=== PATIENT | female | born 1970 | race Caucasian/White ===

== ENCOUNTER 2017-06-01 17:51 | Emergency (ER) | payer BC ==
--- NOTE | 2017-06-01 19:25 | ED ---
Respiratory - HPI Summary HPI Summary: 46 year old female presents with complains of cough. On a side note she is was recently placed on Amoxil . - History of Current Complaint Chief Complaint: UCRespiratory Stated Complaint: COUGH,DIZZINESS Time Seen by Provider: 06/01/17 19:25 Hx Obtained From: Patient Onset/Duration: Sudden Onset Initial Severity: Moderate Current Severity: Moderate Character: Wheezing, Cough (Productive) Sputum Amount: Moderate - Allergy/Home Medications Allergies/Adverse Reactions: Allergies Allergy/AdvReac Type Severity Reaction Status Date / Time Azithromycin [From Zithromax] AdvReac Intermediate GI Upset Verified 06/01/17 19 :23 Home Medications: Home Medications Amoxicillin PO (*) [Amoxicillin 500 MG CAP*] 1 tab Q8H 06/01/17 [History Confirmed 06/01/17] PMH/Surg Hx/FS Hx/Imm Hx Previously Healthy: Yes Endocrine/Hematology History: Denies: Hx Diabetes Cardiovascular History: Denies: Hx Hypertension, Hx Pacemaker/ICD Sensory History: Denies: Hx Hearing Aid Psychiatric History: Denies: Hx Panic Disorder - Surgical History Surgery Procedure, Year, and Place: 3 c-sections Infectious Disease History: Denies: Traveled Outside the [place] in Last 30 Days - Social History Alcohol Use: None Substance Use Type: Reports: None Smoking Status (MU): Never Smoked Tobacco Review of Systems Constitutional: Negative Eyes: Negative Positive: Sore Throat, Ear Ache, Nasal Discharge Cardiovascular: Negative Positive: Cough Gastrointestinal: Negative Genitourinary: Negative Musculoskeletal: Negative Skin: Negative Neurological: Negative Psychological: Normal All Other Systems Reviewed And Are Negative: Yes Physical Exam Triage Information Reviewed: Yes Vital Signs Reviewed: Yes Appearance: Positive: Well-Appearing Skin: Positive: Warm Head/Face: Positive: Normal Head/Face Inspection Eyes: Positive: Normal ENT: Positive: Pharyngeal erythema, Nasal congestion, Nasal drainage, Sinus tenderness Neck: Positive: Supple Respiratory/Lung Sounds: Positive: Rhonchi, Wheezes Cardiovascular: Positive: Normal Abdomen Description: Positive: Nontender Bowel Sounds: Positive: Present Musculoskeletal: Positive: Normal Neurological: Positive: Normal Disposition - Diagnoses Provider Diagnoses: Sinusitis, Wheezing, Cough Discharge - Discharge Plan Condition: Stable Disposition: HOME Prescriptions: Albuterol HFA INHALER* [Ventolin HFA Inhaler*] 1 puff INH Q6H PRN #1 mdi PRN Reason: Cough DOXYcycline CAP(*) [DOXYcycline 100MG CAP(*)] 100 mg PO BID #20 cap Guaifenesin-Codeine [Cheratussin AC] 1 teasp PO Q8H PRN #120 ml MDD 15 ML PRN Reason: Cough Methylprednisolone [Medrol Dosepak 4 MG*] 4 mg PO .SEE JARAD INSTRUCTION #21 tab Patient Education Materials: Acute Bronchitis (ED) Referrals: Shobha Lacey [Primary Care Provider] -
[2017-06-01 19:29] VITALS: BP 127/87
[2017-06-01] MEDS ORDERED: predniSONE TAB* 20 MG PO ONE (20:01)
[2017-06-01] MEDS ORDERED: Albuterol/Ipratropium NEB.SOL* Albuterol 2.5 MG/Ipratropium 0.5 MG 3 ML INH ONE (20:01)
--- NOTE | 2017-06-01 20:05 | RAD ---
INDICATION: Cough for 2 weeks. COMPARISON: There are no prior studies available for comparison. TECHNIQUE: Dual-energy PA and lateral views of the chest were obtained. FINDINGS: The heart is within normal limits in size. Mediastinal and hilar contours appear within normal limits. The lungs are clear. No pleural effusion is present. IMPRESSION: NO EVIDENCE FOR ACTIVE CARDIOPULMONARY DISEASE.
== END 2017-06-01 20:34 | disposition home or self-care (01) ==
LOC: UCCORT 17:51
DX: J32.9 Chronic sinusitis, unspecified (principal); R06.2 Wheezing; R05 Cough; Z88.3 Allergy status to other anti-infective agents
CPT/HCPCS: 71020; 99212; A9270-GY; G0463; J7512

== ENCOUNTER 2018-05-02 06:22 | Day surgery (SDC) | payer BC ==
[~2018-05-02 06:22] MED LIST: Buffered Lidocaine 0.9% SYRIN* 5 ML/SYR SYRINGE INTRADERM ONE; Dexamethasone TAB* 4 MG PO ONE; DiMENhydriNATE IV* 50 MG/ML VIAL IV PUSH PRN; Famotidine IV* 10 MG/ML 2 ML (20 mg) IV ONE; Naloxone* 0.4 MG/ML 1 ML VIAL IV PRN; Ondansetron TAB* 4 MG PO ONE; PROCHLORPERAZINE INJ 5 MG/ML 2 ML VIAL IV PRN; fentaNYL* 50 MCG/ML 2 ML VIAL (100 MCG VIAL) IV PRN; oxyCODONE/Acetamin 5/325 MG* TAB PO PRN
[2018-05-02] MEDS ORDERED: Famotidine IV* 10 MG/ML 2 ML (20 mg) ONE (06:25)
[2018-05-02] MEDS ORDERED: Dexamethasone TAB* 4 MG ONE (06:25)
[2018-05-02] MEDS ORDERED: Clindamycin 900 MG/D5W BAG(*) 900 MG/50 ML BAG IVPB ONE (06:30)
[2018-05-02] MEDS ORDERED: Ondansetron ODT TAB* 4 MG ONE (06:48)
[2018-05-02] MEDS ORDERED: Midazolam* 1 MG/ML 5 ML VIAL (5 MG) ONE (07:17)
[2018-05-02] MEDS ORDERED: KETAMINE HCL* 50 MG/ML 10 ML VIAL ONE (07:17)
[2018-05-02] MEDS ORDERED: fentaNYL* 50 MCG/ML 2 ML VIAL (100 MCG VIAL) ONE (07:17)
[2018-05-02] MEDS ORDERED: Bupivacaine 0.25% SDV PF* 10 ML VIAL INJ ONE (07:21)
[2018-05-02] MEDS ORDERED: Propofol* 10 MG/ML 20 ML BTL ONE ×2 (08:06→08:07)
[2018-05-02] MEDS ORDERED: Lidocaine 2% PF * 5 ML VIAL ONE (08:06)
[2018-05-02 09:32] VITALS: BP 119/85
--- NOTE | 2018-05-03 03:03 | OP ---
DATE OF OPERATION: 05/02/18 - [facility] DATE OF : 68 SURGEON: Singh Almanza MD P[employer]EN[employer] APPRENTICE: CAROLA Tran ANESTHESIOLOGIST: Dr. Delvalle. ANESTHESIA: Local MAC. PRE-OP DIAGNOSIS: Right small finger skin lesion measuring 7 x 5 mm. POST-OP DIAGNOSIS: Right small finger skin lesion measuring 7 x 5 mm. OPERATIVE PROCEDURE: 1. Excision of right small finger skin lesion. 2. Full-thickness skin grafting, right small finger, with hypothenar donor area. INDICATIONS: Alma has had a skin lesion that has been enlarging on the ulnar aspect of the right small finger near the MCP joint. 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 We talked about risks and benefits. I told her there might be very small risk this could be something like a squamous cell skin cancer. She understood and wanted to proceed. ESTIMATED BLOOD LOSS: 2 mL. COMPLICATIONS: None. FINDINGS: See above and below. DESCRIPTION OF PROCEDURE: Alma was seen in the preoperative holding area. The correct side, site, and procedure were identified. We came back to the operating room and she got sedated and then I anesthetized the area with 0.25% plain Marcaine. Please note that I did not introduce the needle anywhere near the skin lesion and stayed well over a centimeter away from the skin lesion at all times so as to not contaminate the area. The hand was then prepped and draped, and a time-out was performed. The arm was exsanguinated with the Esmarch and the tourniquet was inflated to 250 mmHg. I went ahead and ellipsed out the skin lesion taking a margin of healthy tissue and also taking a margin of healthy tissue deep. I then handed this off as a specimen. I measured the defect and then made a size ellipse on the hypothenar area near the junction of the glabrous and the dorsal skin. A full-thickness skin graft was raised leaving no subcutaneous tissue on the undersurface of the graft. This was then transferred to the small finger donor area. Total length of skin graft was 1.5 cm x 1 cm. This was sewn into place on the recipient site with 4-0 nylon suture with simple interrupted sutures. The full-thickness skin graft was perforated a couple of times in the center portion to allow for some drainage. The donor site was closed longitudinally with 3-0 nylon suture. Both sites were looking good. I went ahead and placed a piece of Xeroform, and then packed some fluffs on top of the skin graft and then sewed the fluffs down with some 3-0 nylon suture providing excellent compression on the skin graft to prevent shearing forces. The area was then dressed and an ulnar gutter splint was applied. Tourniquet was deflated and the finger pinked up immediately. She was taken to the recovery room in stable condition. [id number]/CPS #: [id number] ANDERS
== END 2018-05-02 09:30 | disposition home or self-care (01) ==
LOC: OREAST 06:22
PROVIDERS: ATTEND Orthopaedic Surgery Hand Surgery
DX: L90.5 Scar conditions and fibrosis of skin (principal); E03.9 Hypothyroidism, unspecified
CPT/HCPCS: 81025; 88305; A9270-GY; J2250; J2704; J3010; J3490; J8540